=== PATIENT | male | born 1965 | race Caucasian/White ===

== ENCOUNTER 2017-07-29 17:18 | Emergency (ER) | payer OTHER ==
[~2017-07-29] VITALS: Ht 175.3 cm; Wt 131.5 kg
[2017-07-29] MEDS ORDERED: PREDNISONE 20 MG TAB PO ONE (18:00)
[2017-07-29] MEDS ORDERED: ALBUTEROL/IPRATROPIUM 3 ML NEB NEB ONE (18:00)
[2017-07-29 18:56] VITALS: BP 138/80
[2017-07-29] MEDS ORDERED: CEFTRIAXONE SOD 1 GM VIAL IM ONE (19:00)
== END 2017-07-29 19:50 | disposition home or self-care (01) ==
LOC: FSED 17:18
DX: R50.9 Fever, unspecified (principal); R05 Cough; J11.00 Influenza due to unidentified influenza virus with unspecified type of pneumonia; J45.40 Moderate persistent asthma, uncomplicated
CPT/HCPCS: 71046; 87400; 96372; 99283; J0696

== ENCOUNTER → 2018-01-13 | Outpatient (CLI) | payer OTHER | LOC: SLEEP 19:55 | PROVIDERS: ATTEND Internal Medicine | DX: G47.33 Obstructive sleep apnea (adult) (pediatric) (principal) | CPT/HCPCS: 95811 ==

== ENCOUNTER → 2019-06-24 | Outpatient (CLI) | payer OTHER ==
--- NOTE | 2019-06-24 09:41 | Diagnostic Imaging Report ---
Exam: Testicular ultrasound. Clinical History: Left testicular swelling Findings: Sonographic evaluation of the testicles. Both testes are normal in echogenicity and size without intratesticular mass. Normal symmetric bilateral blood flow without evidence of testicular torsion. Right: The right testicle measures 4.0 x 2.8 x 3.0 cm and appears unremarkable. The right epididymis measures 1.3 x 0.6 x 0.7 cm and appears unremarkable. Prominent right hydrocele. No varicocele. Left: The left testicle measures 3.9 x 2.5 x 2.7 cm and appears unremarkable. The left epididymis measures 1.0 x 0.6 x 0.8 cm and appears unremarkable. Trace left hydrocele. No varicocele. Impression: No testicular torsion. No intratesticular mass. Prominent right hydrocele. Trace left hydrocele. Signed by: Elza Nguyen MD on 06/24/2019 9:39 AM
== END ==
LOC: US 06:54
PROVIDERS: ATTEND Internal Medicine
DX: I73.9 Peripheral vascular disease, unspecified (principal); N50.89 Other specified disorders of the male genital organs; N43.3 Hydrocele, unspecified
CPT/HCPCS: 76870; 93976

== ENCOUNTER 2024-02-06 08:39 | Emergency (ER) | payer BC, OTHER ==
[~2024-02-06] VITALS: Ht 175.3 cm; Wt 138.0 kg
[2024-02-06 08:45] VITALS: TEMP 97.9
[2024-02-06] MEDS ORDERED: ATORVASTATIN CA10 MG PO (09:20)
[2024-02-06] MEDS ORDERED: ELIQUIS5 MG PO (09:20)
[2024-02-06] MEDS ORDERED: SPIRONOLACTONE25 MG PO (09:20)
[2024-02-06] MEDS ORDERED: LEVOTHYROXINE50 MCG PO (09:20)
[2024-02-06] MEDS ORDERED: VENTOLIN HFA18 GM INH (09:20)
[2024-02-06] MEDS ORDERED: MULTAQ400 MG PO (09:20)
[2024-02-06] MEDS ORDERED: METOPROLOL SUCC50 MG PO (09:20)
[2024-02-06] MEDS ORDERED: METOPROLOL SUCCINATE 50 MG TAB XL PO ONE (09:45)
[2024-02-06] MEDS: METOPROLOL TARTRATE 50 MG TAB PO SCH (10:16)
[2024-02-06 10:17] VITALS: BP 126/92; PULSE 135
[2024-02-06] MEDS: DILTIAZEM HCL 5 MG/ML 5 ML VIAL IV ONE (10:17)
[2024-02-06 11:41] VITALS: PULSE 90; RESP 18; O2SAT 99
== END 2024-02-06 11:49 | disposition home or self-care (01) ==
LOC: FSED 08:43
DX: R06.02 Shortness of breath (principal); I48.91 Unspecified atrial fibrillation; R10.84 Generalized abdominal pain; R94.31 Abnormal electrocardiogram [ECG] [EKG]
CPT/HCPCS: 71046; 80048; 82553; 83880; 84484; 85025; 93005; 96374; 99284